=== PATIENT | female | born 1950 | race Caucasian/White ===

== ENCOUNTER → 2017-01-20 | Outpatient (CLI) | payer BC ==
[2017-01-20 17:11] LABS: BASO % 0.3 %; BASO ABS # 0.02 K/uL (0-0.2); COMPLETE YES; EOS % 3.1 %; IG% 0.2 %; LYMPH ABS # 1.69 K/uL (1.2-3.4); MEAN CELL VOLUME 84.6 fL (80-100); MEAN CORPUSCULAR HEMOGLOBIN 29.7 pg (25-34); MEAN CORPUSCULAR HGB CONC 35.1 g/dl (32-36); MEAN PLATELET VOLUME 11.1 fL (7.4-10.4); MONO % 7.6 %; NEUT % 62.8 %; PLATELET COUNT 186 K/uL (130-400); RED BLOOD COUNT 5.08 M/uL (4.2-5.4); WHITE BLOOD COUNT 6.49 K/uL (4.8-10.8)
[2017-01-20 17:20] LABS: URINE APPEARANCE CLEAR (CLEAR); URINE BILIRUBIN NEG (NEG); URINE COLOR YELLOW; URINE EPITHELIAL CELL AUTO >30 /lpf (0-5); URINE NITRITE NEG (NEG); URINE SPECIFIC GRAVITY 1.016 (1.000-1.030); UROBILINOGEN NEG (NEG)
[2017-01-20 17:21] LABS: ALT/SGPT 53 U/L (12-78); AST/SGOT 37 U/L (15-37); BLOOD UREA NITROGEN 21 mg/dl (7-18); BUN/CREATININE RATIO 21.5 (10-20); CALCIUM 9.1 mg/dl (8.5-10.1); CARBON DIOXIDE 28 mmol/L (21-32); CHLORIDE 107 mmol/L (98-107); GLUCOSE 97 mg/dl (70-99); POTASSIUM 3.8 mmol/L (3.5-5.1); SODIUM 141 mmol/L (136-145)
[2017-01-20 17:24] LABS: ALB/GLOB RATIO 1.3 (0.9-2); ALKALINE PHOSPHATASE 73 U/L (45-117)
[2017-01-20 17:36] LABS: MANUAL MICROSCOPIC REQUIRED? NO; REVIEW REQ? NO
== END | disposition home or self-care (01) ==
LOC: C.LABBC 14:22
PROVIDERS: ATTEND Physician Assistant Medical
DX: R10.9 Unspecified abdominal pain (principal)

== ENCOUNTER → 2017-01-26 | Outpatient (CLI) | payer BC ==
--- NOTE | 2017-01-26 13:56 | MAMMOGRAPHY REPORT ---
BILATERAL DIGITAL SCREENING MAMMOGRAM WITH CAD: 01/26/2017 CLINICAL HISTORY: Routine screening. Patient has no complaints. TECHNIQUE: Current study was also evaluated with a Computer Aided Detection (CAD) system. Bilatera l CC and MLO views were obtained. COMPARISON: Comparison is made to exams dated: 01/23/2016 mammogram, 01/02/2015 mammogram, 01/01/2014 mammogram, 12/29/2012 mammogram, 12/28/2011 mammogram, and 12/25/2010 mammogram - [facility]. BREAST COMPOSITION: The tissue of both breasts is almost entirely fatty. FINDINGS: No suspicious masses, calcifications, or areas of architectural distortion are noted in e ither breast. There has been no significant interval change compared to prior exams. IMPRESSION: ACR BI-RADS CATEGORY 1: NEGATIVE There is no mammographic evidence of malignancy. A 1 year screening mammogram is recommended. The p atient will receive written notification of the results. Approximately 10% of breast cancers are not detected with mammography. A negative mammographic repor t should not delay biopsy if a clinically suggestive mass is present. Radha Becerril M.D. /:01/26/2017 12:19:34 Welder Manufacture: Katrin SINGH(R)(M), [facility] letter sent: Normal 1/2 BI-RADS Code: ACR BI-RADS Category 1: Negative
== END | disposition home or self-care (01) ==
LOC: C.MAMM 10:04
PROVIDERS: ATTEND Obstetrics & Gynecology
DX: Z12.31 Encounter for screening mammogram for malignant neoplasm of breast (principal)

== ENCOUNTER → 2017-02-15 | Outpatient (CLI) | payer BC ==
[~2017-02-15] MED LIST: OPTIRAY 320 IV PRN
[2017-02-15 16:51] LABS: HEMATOCRIT 47.1 % (37-47); MEAN CELL VOLUME 88.5 fL (80-100); MEAN CORPUSCULAR HEMOGLOBIN 30.5 pg (25-34); MEAN CORPUSCULAR HGB CONC 34.4 g/dl (32-36); RED BLOOD COUNT 5.32 M/uL (4.2-5.4); WHITE BLOOD COUNT 5.91 K/uL (4.8-10.8)
--- NOTE | 2017-02-15 17:51 | DIAGNOSTIC IMAGING REPORT ---
CT ABD/PELVIS IV AND ORAL CONT CLINICAL HISTORY: Left lower quadrant abdominal pain COMPARISON STUDY: March 2016 TECHNIQUE: Following the IV administration of 115 mL of Optiray-320, CT scan of the abdomen and pelvis was performed from the lung bases to the proximal femurs. Images are reviewed in the axial, sagittal, and coronal planes. IV contrast was administered without complication. CT DOSE: 1033.51 mGy.cm FINDINGS: Lower chest: The heart is normal in size and configuration, without pericardial effusion. The lung bases and pleural spaces are clear. Liver: There is hepatic steatosis. No focal masses are visualized. Gallbladder: Unremarkable. Spleen: Normal in size and attenuation. Pancreas: Unremarkable. Adrenal glands: Unremarkable. Kidneys: There is a 9 mm right renal cyst. No solid renal masses are visualized. There is no hydronephrosis. Bowel: There are no transition zones indicate bowel obstruction. The tip of the appendix is mildly dilated during 8 mm. This remains unchanged from the prior June 2016 study and therefore may represent an anatomic variant. There is colonic diverticulosis. There is slight peridiverticular left parametrial stranding. I would favor this representing a chronic finding as opposed to acute diverticulitis. Peritoneum: There is no intraperitoneal free air or abdominal ascites. There is a tiny fat-containing umbilical hernia. Vasculature: The abdominal aorta is normal in course and caliber. Adenopathy: None. Pelvic viscera: The uterus appears surgically absent Skeletal structures: No destructive osseous lesions are seen. IMPRESSION: 1. No evidence of bowel obstruction. No evidence of free air 2. Diverticulosis. There is minimal stranding in the region the left parametrium/sigmoid colon. While minimal diverticulitis cannot be excluded, this may represent a chronic finding. 3. Mild bulbous dilatation of the appendiceal tip, unchanged from June 2016. Given the stability, and lack of right lower quadrant abdominal pain, this finding may represent a normal anatomic variant 4. Hepatic steatosis Electronically signed by: Miguel Serrato M.D. 02/15/2017 5:50 PM Dictated Date/Time: 02/15/2017 5:43 PM
[2017-02-15 19:35] LABS: MEAN PLATELET VOLUME 11.9 fL (7.4-10.4); PLATELET COUNT 31 K/uL (130-400)
[2017-02-15 19:37] LABS: BASO ABS # 0.05 K/uL (0-0.2); BASOPHIL % 0.9 %; COMPLETE YES; EOSINOPHIL % 3.5 %; LYMPH ABS # 2.36 K/uL (1.2-3.4); NEUTROPHILS % 52.1 %; SMUDGE CELLS PRESENT
== END | disposition home or self-care (01) ==
LOC: C.CTS 14:50
PROVIDERS: ATTEND Physician Assistant Medical
DX: Z11.59 Encounter for screening for other viral diseases (principal); M85.80 Other specified disorders of bone density and structure, unspecified site; E03.9 Hypothyroidism, unspecified; R10.9 Unspecified abdominal pain; R10.814 Left lower quadrant abdominal tenderness; K57.30 Diverticulosis of large intestine without perforation or abscess without bleeding; K76.0 Fatty (change of) liver, not elsewhere classified

== ENCOUNTER → 2017-04-13 | Outpatient (CLI) | payer BC | END | disposition home or self-care (01) | LOC: C.LAB 15:07 | PROVIDERS: ATTEND Internal Medicine | DX: E03.9 Hypothyroidism, unspecified (principal) ==

== ENCOUNTER → 2018-02-22 | Outpatient (CLI) | payer BC ==
--- NOTE | 2018-02-22 15:24 | MAMMOGRAPHY REPORT ---
BILATERAL DIGITAL SCREENING MAMMOGRAM TOMOSYNTHESIS WITH CAD: 02/22/2018 CLINICAL HISTORY: Routine screening. Patient has no complaints. TECHNIQUE: Breast tomosynthesis in addition to standard 2D mammography was performed. Current study was also evaluated with a Computer Aided Detection (CAD) system. COMPARISON: Comparison is made to exams dated: 01/26/2017 mammogram, 01/23/2016 mammogram, 01/02/2015 m ammogram, 01/01/2014 mammogram, 12/29/2012 mammogram, and 12/28/2011 mammogram - [facility]. BREAST COMPOSITION: The tissue of both breasts is almost entirely fatty. FINDINGS: No suspicious masses, calcifications, or areas of architectural distortion are noted in ei ther breast. There has been no significant interval change compared to prior exams. IMPRESSION: ACR BI-RADS CATEGORY 1: NEGATIVE There is no mammographic evidence of malignancy. A 1 year screening mammogram is recommended. The pa tient will receive written notification of the results. Approximately 10% of breast cancers are not detected with mammography. A negative mammographic report should not delay biopsy if a clinically suggestive mass is present. Radha Becerril M.D. /:02/22/2018 12:11:19 Financial Data Analyst: Neena MCGOWAN)([place]), [facility] letter sent: Normal 1/2 BI-RADS Code: ACR BI-RADS Category 1: Negative
== END | disposition home or self-care (01) ==
LOC: C.MAMM 10:28
PROVIDERS: ATTEND Obstetrics & Gynecology
DX: Z12.31 Encounter for screening mammogram for malignant neoplasm of breast (principal)